=== PATIENT | female | born 1970 | race Caucasian/White ===

== ENCOUNTER 2017-05-17 15:34 | Emergency (ER) | payer MEDICARE, OTHER ==
[2017-05-17] MEDS: ONDANSETRON ODT 4 MG TAB.RAPDIS. PO ×2 (16:20)
== END 2017-05-17 16:23 | disposition home or self-care (01) ==
LOC: ER 15:34
DX: T36.0X5A Adverse effect of penicillins, initial encounter (principal); H66.91 Otitis media, unspecified, right ear; M79.7 Fibromyalgia; K21.9 Gastro-esophageal reflux disease without esophagitis; Y92.89 Other specified places as the place of occurrence of the external cause
CPT/HCPCS: 99283; 99284; Q0162